=== PATIENT | female | born 1995 | race Two or more races ===

== ENCOUNTER 2017-04-24 21:37 | Emergency (ER) | payer MEDICAID ==
[~2017-04-24 21:37] MED LIST: MACROBID 100 M100 M1 PO; NO HOME MEDICATION XX
[2017-04-24] MEDS ORDERED: PRENATAL-U CAPS1 CAP PO (22:21)
[2017-04-24 22:50] LABS: URINE BILIRUBIN NEGATIVE (NEG); URINE BLOOD LARGE (NEG); URINE GLUCOSE (UA) NEGATIVE (NEG); URINE KETONE NEGATIVE (NEG); URINE LEUKOCYTE ESTERASE POSITIVE (NEG); URINE NITRITE NEGATIVE (NEG); URINE PROTEIN SMALL (NEG); URINE SPECIFIC GRAVITY 1.015 (1.003-1.030)
[2017-04-24 22:53] LABS: URINE APPEARANCE HAZY; URINE COLOR YELLOW
[2017-04-24 22:57] LABS: URINE BACTERIA 1+
[2017-04-25] MEDS ORDERED: MACROBID 100 M100 M1 PO (01:03)
== END 2017-04-25 01:15 ==
LOC: EDMED 21:37
PROVIDERS: Emergency Medicine
DX: O20.0 Threatened abortion (principal); O23.41 Unspecified infection of urinary tract in pregnancy, first trimester; R82.71 Bacteriuria; Z3A.01 Less than 8 weeks gestation of pregnancy